=== PATIENT | male | born 1990 | race Caucasian/White ===

== ENCOUNTER 2018-01-05 19:31 | Emergency (ER) | payer OTHER ==
[2018-01-05 19:42] VITALS: BP 139/74
--- NOTE | 2018-01-05 21:37 | ED Physician Documentation ---
PD HPI MALE - Stated complaint Stated Complaint: MALE - Chief complaint Chief Complaint: General - History obtained from History obtained from: Patient - History of Present Illness Timing - onset: Unknown (his has had UTI symptoms few times and was told it could be an STD. Patient is wanting to get checked to be sure he does not have apparent STD. Not having any symptoms.) Associated symptoms: No: Dysuria, Urinary frequency, Discharge, Genital sore / lesion, Testiclar pain PD HPI MALE CONTRIB FACTORS: Sexually active Similar symptoms before: Has not had sx before Review of Systems : denies: Dysuria, Discharge Skin: denies: Rash, Lesions PD PAST MEDICAL HISTORY - Past Medical History Past Medical History: No Cardiovascular: None Respiratory: None Neuro: None Endocrine/Autoimmune: None GI: None : None HEENT: None Psych: None Musculoskeletal: None Derm: None - Past Surgical History Past Surgical History: No - Present Medications Home Medications: Ambulatory Orders Medication Instructions Recorded Confirmed No Known Home Medications 01/05/18 01/05/18 - Allergies Allergies/Adverse Reactions: Allergies Allergy/AdvReac Type Severity Reaction Status Date / Time No Known Drug Allergies Allergy Verified 01/05/18 19:40 - Social History Does the pt smoke?: No Smoking Status: Never smoker Does the pt drink ETOH?: Yes ETOH Use: Beer Does the pt have substance abuse?: No - Immunizations Immunizations are current?: Yes - POLST Patient has POLST: No PD ED PE NORMAL - Vitals Vital signs reviewed: Yes - General General: Alert and oriented X 3, No acute distress, Well developed/nourished - HEENT HEENT: Pharynx benign - Neck Neck: Supple, no meningeal sign, No adenopathy - Male Male : Other (normal genitalia without redness, rash, sores, discharge nor tenderness. No tenderness of epididymis. Testicles normal size. ) - Derm Derm: Normal color, Warm and dry Results - Vitals Vitals: Oxygen O2 Source Room air - Labs Labs: Laboratory Tests 01/05/18 21:57 C.trachomatis RNA (TMA) NOT DETECTED Chlamydia/GC Comment SEE NOTE N.gonorrhoeae RNA (TMA) NOT DETECTED Departure - Departure Disposition: 01 Home, Self Care Clinical Impression: Concern about STD in male without diagnosis Condition: Stable Record reviewed to determine appropriate education?: Yes Comments: It does not sound like you have an STD but they can be somewhat occult at times. We did do the STD test (culture). The results will come back in 2-3 days and will call you if it is positive. This will ensure that there is not any presence of STDs. Discharge Date/Time: 01/05/18 22:14
== END 2018-01-05 22:14 | disposition home or self-care (01) ==
LOC: ED 19:31
DX: Z71.1 Person with feared health complaint in whom no diagnosis is made (principal)
CPT/HCPCS: 87491; 87591; 99282